=== PATIENT | female | born 1985 | race Caucasian/White ===

== ENCOUNTER 2016-11-06 06:26 | Inpatient (IN) | payer BC ==
[2016-11-04 10:45] LABS: BASOPHILS 0.3 %; BASOPHILS ABSOLUTE 0.02 10/3/uL (0.0-0.16); EOSINOPHILS 4.3 %; EOSINOPHILS ABSOLUTE 0.29 10/3/uL (0.0-0.53); HEMATOCRIT 36.9 % (36.0-48.0); HEMOGLOBIN 12.7 g/dL (12.0-16.0); IMMATURE GRANULOCYTES 0.1 %; IMMATURE GRANULOCYTES ABSOLUTE 0.01 10/3/uL (0.0-0.11); LYMPHOCYTES 31.2 %; LYMPHOCYTES ABSOLUTE 2.09 10/3/uL (0.67-4.30); MEAN CORPUS HGB CONC 34.4 g/dL (32.0-36.0); MEAN CORPUSCULAR HEMOGLOB 28.3 pg (26.0-34.0); MEAN CORPUSCULAR VOLUME 82.2 fL (80-100); MEAN PLATELET VOLUME 9.3 fL (9.2-13.0); MONOCYTES 6.3 %; MONOCYTES ABSOLUTE 0.42 10/3/uL (0.21-1.20); NEUTROPHILS 57.8 %; NEUTROPHILS ABSOLUTE 3.87 10/3/uL (2.02-8.40); PLATELET COUNT 270 10/3/uL (150-400); RBC DISTRIBUTION WIDTH 13.4 % (12.0-16.0); RED CELL COUNT 4.49 10/6/uL (4.0-5.6); WHITE BLOOD CELLS 6.7 10/3/uL (4.5-10.5)
[2016-11-04 10:47] LABS: MANUAL DIFF NO %
[2016-11-04 10:50] LABS: PARTIAL THROMBO TIME 28.6 SEC (22.5-37.2)
[2016-11-04 10:51] LABS: INTERNATIONAL NORMAL RATI 1.1 UNITS (-)
[2016-11-04 11:37] LABS: ALBUMIN 3.8 G/DL (3.5-5.0); ALKALINE PHOSPHATASE 83 U/L (45-117); BUN (BLOOD UREA NITROGEN) 15 MG/DL (6-23); CALCIUM, SERUM 8.4 MG/DL (8.5-10.4); CHLORIDE, SERUM 106 MMOL/L (96-112); CHOL/HDL RATIO(NOT ORDER) 2.7 (0-5); CHOLESTEROL 147 MG/DL (< 200); CO2 (CARBON DIOXIDE) 27 MMOL/L (24-34); CREATININE 0.66 MG/DL (0.55-1.02); FOLATE 24.9 NG/ML (>5.2); GFR AFRICAN AMERICAN 138 ML/MIN (>=60); GFR NON AFRICAN AMERICAN 119 ML/MIN (>=60); GLOBULIN 3.8 G/DL (2.5-4.1); GLUCOSE, SERUM 95 MG/DL (60-99); HDL CHOLESTEROL 55 MG/DL (> 49); LDL CHOLESTEROL 81 MG/DL (< 130); NON-HDL CHOLESTEROL 92 MG/DL (< 160); SGOT(AST) 16 U/L (5-40); SGPT(ALT) 24 U/L (5-65); SODIUM, SERUM 142 MMOL/L (135-148); TOTAL BILIRUBIN 0.7 MG/DL (0-1.2); TOTAL PROTEIN 7.6 G/DL (6.0-8.5); TRIGLYCERIDE 59 MG/DL (< 150)
[2016-11-04 12:34] LABS: ASCORBIC ACID (UR NOT ORDER) NEG (NEG); BILIRUBIN, URINE NEGATIVE (NEG); KETONE, URINE NEGATIVE (NEG); LEUKOCYTE ESTERASE(NOT OR NEG (NEG); WBC (NOT ORDERED) (RFLEX) 1 (0-5)
[2016-11-05 08:43] LABS: IRON, SERUM 26 MCG/DL (35-150)
--- NOTE | ~2016-11-06 | OP ---
Record Of Operation [facility] [address] [place]. [address] NAME: BANDAR FLANNERY : 89 STATUS : ADM IN PAT#: [id number] AGE: 31 ADM/REG DATE : 11/06/16 MR#: [id number] REPORT SERV DATE: 11/06/16 DICTATED BY: SANCHEZ JOSEPH DATE: 11/06/16 REPORT STATUS : Draft TRANSCRIBED BY: MERLIN DATE: 11/06/16 DATE OF PROCEDURE: PREOPERATIVE DIAGNOSIS: Morbid obesity. POSTOPERATIVE DIAGNOSIS: Morbid obesity. OPERATION: Laparoscopic sleeve gastrectomy. SURGEON: Sanchez Joseph M.D. ANESTHESIA: General endotracheal. COMPLICATIONS: None. INDICATION OF THE OPERATION: This is a 31-year-old white female with morbid obesity with a BMI of 51.4 and a weight of 290 pounds and associated arthropathy and anxiety and depression. DESCRIPTION OF OPERATION: The patient was taken to the operating room and after adequate general anesthesia was prepped and draped in the usual sterile manner, we put a total of 5 trocars in the upper abdomen. Carefully we the left lobe of the liver, identified the upper stomach anatomy. We did remove some of the epiphrenic fat pad on top of the stomach, then proceeded to enter the lesser sac at the level of the lower body of the stomach next to the greater curvature and started dissecting the greater curvature all the way up to the fundus, mobilized the fundus all the way up to the left logan. The left logan was completely dissected posteriorly. I did not see any evidence of a significant hiatal hernia. We did remove some of the attachments posteriorly and then continued the dissection in the greater curvature with the Harmonic Scalpel all the way down to the distal antrum to about 2 to 3 cm from the pylorus. Then, we introduced a 36-Croatian blunt-tip bougie suction catheter all the way down to the distal antrum, put it on suction to delineate well the stomach and then started stapling about 5 cm from the pylorus using the echelon automatic stapler with a green load and stapler reinforcement using the SeamGuard. We used a total of 5 staplers from the bottom to the top. Staple line looked intact. There was only 1 spot of a little bit of oozing, then we had to put a stitch to stop the bleeding. Then, we proceeded to tack the greater omentum into the staple line at the top, middle, and lower portion with interrupted Vicryl 2-0 sutures to stabilize the orientation of the sleeve pouch and then proceeded to remove the stomach specimen through the 15 mm trocar site after we stretched it with a Mony. We did remove the suction catheter, bougie catheter and we put it in and out to verify there was no evidence of obstruction in the sleeve and then we closed the fascia on the 15 mm trocar site after the stomach was removed with EFX fascia closure device using a Vicryl #0. Then we removed all the trocars and the liver retractor under direct visualization and closed all the incisions with subcuticular Monocryl 4-0. The patient tolerated the procedure well and did not have any problems. Record Of Operation [facility] [address] [place]. [address] NAME: BANDAR FLANNERY : 89 STATUS : ADM IN [facility]#: [id number] AGE: 31 ADM/REG DATE : 11/06/16 MR#: [id number] REPORT SERV DATE: 11/06/16 DICTATED BY: SANCHEZ JOSEPH DATE: 11/06/16 REPORT STATUS : Draft TRANSCRIBED BY: MERLIN DATE: 11/06/16 MARISA/MERLIN Sanchez Marquez M.D. / [id number] CC: Irene Monte M.D.
[~2016-11-06 06:26] MED LIST: ACET500CAP PO
[2016-11-07] MEDS ORDERED: SUCR PO ×2 (14:17→14:18)
== END 2016-11-07 16:02 | disposition home or self-care (01) | DRG 621 ==
LOC: SDC/OF 06:26 → PACU 10:24 → 2SO 14:29
PROVIDERS: Surgery
PROC: 0DB64Z3 Excision of Stomach, Percutaneous Endoscopic Approach, Vertical (ICD-10-PCS; principal; 2016-11-06 07:45)
DX: E66.01 Morbid (severe) obesity due to excess calories (principal); F32.9 Major depressive disorder, single episode, unspecified; Z68.43 Body mass index [BMI] 50.0-59.9, adult; F41.9 Anxiety disorder, unspecified; M19.90 Unspecified osteoarthritis, unspecified site
CPT/HCPCS: 74246; 80053; 80061; 81001; 82607; 82746; 83036; 83540; 84443; 84703; 85025; 85610; 85730; 88307; 93005; A9270-GY; C1760; C9113; J0690; J0735; J1170; J2250; J2270; J2405; J2550; J2710; J3010